=== PATIENT | male | born 1955 | race Native Hawaiian/Other Pacific Islander ===

== ENCOUNTER 2017-04-22 12:37 | Observation (INO) | payer BC ==
[~2017-04-22] VITALS: Ht 195.6 cm; Wt 188.5 kg
--- NOTE | 2017-04-22 14:00 | NUR ---
LEFT CALF MEASURED AT 51CM. LEFT FOOT AND LOWER LEG SWOLLEN AND LIGHT PURPLE IN COLOR. RIGHT CALF MEASURED AT 45.5 CM. NO SWELLING OR REDNESS NOTED ON RIGHT LEG. WILL CONT TO MONITOR.
[2017-04-22 14:10] LABS: PLATELET COUNT 184 K/uL (142-355)
[2017-04-22 14:43] LABS: PARTIAL THROMBOPLASTIN TIME 29.4 SECONDS (24.5-33.6)
[2017-04-22 15:02] LABS: POTASSIUM 4.3 mmol/L (3.6-5.2)
[2017-04-22 17:14] VITALS: BP 153/96; TEMP 97.8; Ht 195.6 cm; Wt 188.5 kg
[2017-04-22 20:00] VITALS: BP 160/102; TEMP 98.3
[2017-04-22] MEDS ORDERED: METFORMIN HYDR500 MG PO (23:54)
[2017-04-22] MEDS ORDERED: RANITIDINE 150150 MG PO (23:55)
[2017-04-22] MEDS ORDERED: HYDR10TA51 PO (23:57)
[2017-04-22] MEDS ORDERED: JANUVIA25 MG PO (23:57)
[2017-04-22] MEDS ORDERED: JANTOVEN5 MG OR (23:58)
[2017-04-22] MEDS ORDERED: LISI20TA11 PO (23:58)
[2017-04-23] VITALS: BP 125/66; TEMP 97.6
[2017-04-23] MEDS ORDERED: DICLOFENAC SODIUM1 % TD
[2017-04-23] MEDS ORDERED: GABA300C2 PO (00:02)
[2017-04-23] MEDS ORDERED: MELOXICAM15 MG PO (00:02)
[2017-04-23 04:00] VITALS: BP 153/77; TEMP 97.6
[2017-04-23 05:09] LABS: PLATELET COUNT 166 K/uL (142-355)
[2017-04-23 05:20] LABS: POTASSIUM 3.7 mmol/L (3.6-5.2)
[2017-04-23 08:00] VITALS: BP 137/86; TEMP 97.6
[2017-04-23 12:00] VITALS: BP 139/89; TEMP 97.8
[2017-04-23] MEDS ORDERED: CEPH500C20 PO (13:24)
[2017-04-23] MEDS ORDERED: JANTOVEN5 MG OR (13:24)
--- NOTE | 2017-04-23 14:30 | NUR ---
IV D/C'D. D/C INSTRUCTIONS GIVEN. PT HAS NO FUTHER QUESTIONS. PT WHEELED OUT VIA W/C AT THIS TIME. NO PROBLEMS NOTED.
== END 2017-04-23 14:20 | disposition home or self-care (01) ==
LOC: MED/SURG 12:37
PROVIDERS: Family Medicine; ADMIT Nurse Practitioner Family
DX: L03.116 Cellulitis of left lower limb (principal); I10 Essential (primary) hypertension; E11.9 Type 2 diabetes mellitus without complications; E66.01 Morbid (severe) obesity due to excess calories; R91.1 Solitary pulmonary nodule; I48.91 Unspecified atrial fibrillation; Z79.01 Long term (current) use of anticoagulants
CPT/HCPCS: 80053; 85027; 85610; 85730; 87040; 87899; 93005; 94760; 99220; G0378; G0379; Q9963

== ENCOUNTER 2017-07-14 08:10 | Outpatient (CLI) | payer BC ==
[~2017-07-14 08:10] MED LIST: CEPH500C20 PO; DICLOFENAC SODIUM1 % TD; GABA300C2 PO; HYDR10TA51 PO; JANTOVEN5 MG OR; JANUVIA25 MG PO; LISI20TA11 PO; MELOXICAM15 MG PO; METFORMIN HYDR500 MG PO; RANITIDINE 150150 MG PO
== END 2017-07-14 19:13 | disposition home or self-care (01) ==
LOC: RESP 08:10
DX: I48.1 Persistent atrial fibrillation (principal)
CPT/HCPCS: 93306